=== PATIENT | female | born 1990 | race Caucasian/White ===

== ENCOUNTER 2017-10-17 04:16 | Emergency (ER) | payer BC, OTHER ==
[~2017-10-17] VITALS: Ht 175.3 cm; Wt 53.1 kg
[2017-10-17 04:17] VITALS: BP_SYST 141
--- NOTE | 2017-10-17 04:17 | NUR ---
Patient to ER bed 4 to gown for evaluation. Side rails up.
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
--- NOTE | 2017-10-17 04:24 | NUR ---
ER MD Gaines at bedside evaluating the patient
--- NOTE | 2017-10-17 04:36 | NUR ---
[place] [employer] at bedside inteviewing pt.
--- NOTE | 2017-10-17 04:58 | NUR ---
Radiology at bedside with portable for xray.
[2017-10-17] MEDS ORDERED: CYCLOBENZAPRINE HCL 10 MG TABLET (FLEXERIL) PO ONE (05:00)
[2017-10-17] MEDS ORDERED: KETOROLAC TROMETHAMINE 15 MG VIAL IM ONE (05:00)
[2017-10-17] MEDS ORDERED: CYCLOBENZAPRINE HCL 10 MG TABLET (FLEXERIL) ONE (05:07)
[2017-10-17 05:29] VITALS: BP_SYST 123
--- NOTE | 2017-10-17 05:29 | NUR ---
Patient given written and verbal discharge instructions and verbalizes understanding. ER MD DELGADILLO discussed with patient the results and treatment provided. Patient in stable condition. ID arm band removed. Rx of FLEXERIL, IBUPROFEN 800 given. Patient educated on pain management and to follow up with PMD. Pain Scale 2/10. Opportunity for questions provided and answered. Medication side effect fact sheet provided.
== END 2017-10-17 05:29 | disposition home or self-care (01) ==
LOC: SED 04:16
DX: S16.1XXA Strain of muscle, fascia and tendon at neck level, initial encounter (principal); M79.674 Pain in right toe(s); V89.2XXA Person injured in unspecified motor-vehicle accident, traffic, initial encounter; Y93.89 Activity, other specified; Y92.410 Unspecified street and highway as the place of occurrence of the external cause; Y99.8 Other external cause status
CPT/HCPCS: 73630; 96372; 99284; J1885

== ENCOUNTER 2018-11-19 14:22 | Emergency (ER) | payer BC, OTHER ==
[~2018-11-19] VITALS: Ht 175.3 cm; Wt 54.4 kg
[2018-11-19 14:22] VITALS: BP_SYST 143
--- NOTE | 2018-11-19 14:22 | NUR ---
Patient triaged and placed in waiting room. VSS and patient appears in no acute distress at this time. Accompanied by SISTER, awaiting available bed, and MD notified of need for MSE.
[2018-11-19 15:06] LABS: BILIRUBIN,URINE NEGATIVE (NEGATIVE); BLOOD, URINE NEGATIVE (NEGATIVE); CLARITY/URINE CLEAR (CLEAR); COLOR,URINE YELLOW (YELLOW); GLUCOSE,URINE NEGATIVE (NEGATIVE); KETONES,URINE NEGATIVE (NEGATIVE); NITRITE, URINE NEGATIVE (NEGATIVE); PH,URINE 7.5 (5.0-8.0); PROTEIN URINE NEGATIVE (NEGATIVE); UROBILINOGEN,URINE 0.2 (0.2-1.0)
[2018-11-19 15:12] LABS: LEUKOCYTE ESTERASE ,URINE TRACE (NEGATIVE)
[2018-11-19 15:14] LABS: BACTERIA,URINE FEW /HPF (None Seen); MUCUS,URINE None Seen /LPF (None Seen); RBC,URINE 0-3 /HPF (0-3)
[2018-11-19 15:18] LABS: BARBITURATE, URINE NEGATIVE (NEG <=200); BENZODIAZEPINE, URINE NEGATIVE (NEG <=150); CANNABINOID, URINE NEGATIVE (NEG <=50); COCAINE, URINE NEGATIVE (NEG <=150); METHAMPHETAMINES SCREEN,URINE NEGATIVE (NEG <=500); OPIATE, URINE NEGATIVE (NEG <=100); PHENCYCLIDINE SCREEN,URINE NEGATIVE (NEG <=25); UR TRICYCLIC ANTIDEPRESSANTS NEGATIVE (NEG <=300); URINE AMPHETAMINE NEGATIVE (NEG <=500); URINE METHADONE NEGATIVE (NEG <=200); URINE OXYCODONE SCREEN NEGATIVE (NEG <=100); URINE PROPOXYPHENE SCREEN NEGATIVE (NEG <=300)
[2018-11-19 15:42] LABS: BASOPHILS # (AUTO) 0.1 K/uL (0.0-0.2); BASOPHILS % (AUTO) 0.9 % (0.0-2.0); EOSINOPHILS # (AUTO) 0.1 K/uL (0.0-0.4); EOSINOPHILS % (AUTO) 1.1 % (0.0-4.0); HEMATOCRIT 38.9 % (36-48); LYMPHOCYTES # (AUTO) 1.5 K/uL (1.0-5.5); LYMPHOCYTES % (AUTO) 26.8 % (20.5-51.5); MEAN CORPUSCULAR HEMOGLOBIN 31 pg (27-31); MEAN CORPUSCULAR HGB CONC 33 % (32-36); MEAN CORPUSCULAR VOLUME 94 fL (79.0-98.0); MONOCYTES # (AUTO) 0.4 K/uL (0.0-1.0); MONOCYTES % (AUTO) 6.4 % (1.7-9.3); NEUTROPHILS # (AUTO) 3.6 K/uL (1.8-7.7); NEUTROPHILS % (AUTO) 64.8 % (40.0-70.0); PLATELET COUNT (AUTO) 243 K/uL (130-430); RED BLOOD CELL COUNT(AUTO) 4.14 MIL/uL (4.2-6.2); RED CELL DISTRIBUTION WIDTH 12.7 % (9.0-15.0); WHITE BLOOD COUNT (AUTO) 5.6 K/uL (4.8-10.8)
[2018-11-19 15:49] LABS: INR 1.1 (0.8-1.2)
[2018-11-19 15:51] LABS: CALCIUM 9.2 mg/dL (8.4-11.0); CREATININE 0.85 mg/dL (0.55-1.30); POTASSIUM 3.8 mmol/L (3.5-5.1)
[2018-11-19 16:20] LABS: ALBUMIN 4.1 g/dL (3.4-4.8); FREE T4 (FREE THYROXINE) 0.8 ng/dL (0.6-1.6); THYROID STIMULATING HORMONE 0.78 uIu/mL (0.34-4.82); TOTAL BILIRUBIN 0.3 mg/dL (0.0-1.0)
--- NOTE | 2018-11-19 16:58 | NUR ---
BROUGHT BACK TO HALLWAY BED. WILL ASSUME CARE
--- NOTE | 2018-11-19 17:00 | NUR ---
DR MALONE AT BEDSIDE FOR EVALUATION
--- NOTE | 2018-11-19 17:30 | NUR ---
PLACED ON CARDIAC MONITORING
--- NOTE | 2018-11-19 18:04 | NUR ---
PATIENT CAME IN COMPLAINING OF PALPITATIONS THAT STARTED WEEK AGO. PATIENT ALSO COMPLAINING OF CHEST PAIN 3/10 AND DIZZINESS. PATIENT STATES SHE HAS HISTORY OF THIS EPISODE AND MITRAL VALVE PROLAPSE. PATIENT STATES SHE HAD HOLTER MONITOR FOR 4 DAYS WHICH SHOWED NO ARRYTHMIAS. PATIENT DENISED SOB AND NAUSAE. PATIENT ALERT AND ORIENTED X4.
[2018-11-19] MEDS ORDERED: LORazepam 1 MG TABLET PO ONE (18:30)
[2018-11-19 19:05] VITALS: BP_SYST 115
--- NOTE | 2018-11-19 19:05 | NUR ---
Patient given written and verbal discharge instructions and verbalizes understanding. ER MD discussed with patient the results and treatment provided. Patient in stable condition. ID arm band removed. Rx of ATIVAN given. Patient educated on pain management and to follow up with PMD. Pain Scale 0/10. Opportunity for questions provided and answered. Medication side effect fact sheet provided.
== END 2018-11-19 19:05 | disposition home or self-care (01) ==
LOC: SED 14:22
DX: R00.2 Palpitations (principal); R03.0 Elevated blood-pressure reading, without diagnosis of hypertension; Z86.79 Personal history of other diseases of the circulatory system
CPT/HCPCS: 36415; 70450-TC; 71045; 80053; 80307; 81000-TC; 81025; 84439; 84443-TC; 84484; 85025; 85610-TC; 85730-TC; 93005; 99284